=== PATIENT | male | born 1970 | race Caucasian/White ===

== ENCOUNTER 2017-04-27 09:04 | Emergency (ER) | payer SELFPAY ==
[~2017-04-27] VITALS: Ht 165.1 cm; Wt 80.0 kg
[2017-04-27 09:57] LABS: BASOPHILS % 0.4 % (0.0-2.0); EOSINOPHILS % 5.9 % (0.0-5.0); HEMATOCRIT. 36.7 % (42.0-52.0); LYMPHOCYTES % 19.5 % (20.0-50.0); MEAN CORPUSCULAR HEMOGLOBIN 33.1 pg (28.0-32.0); MEAN CORPUSCULAR VOLUME 93.7 fL (80.0-94.0); MEAN PLATELET VOLUME 6.4 fl (7.4-10.4); MONOCYTES % 9.5 % (2.0-8.0); NEUTROPHILS % 64.7 % (40.0-76.0); PLATELET 136 x1000/uL (130-400); RED BLOOD CELL COUNT 3.92 mill/uL (4.7-6.1); RED CELL DISTRIBUTION WIDTH 14.7 % (11.6-14.6)
[2017-04-27 10:03] LABS: CHLORIDE 102 mEq/L (98-107)
[2017-04-27 10:06] LABS: INR 1.2; PARTIAL THROMBOPLASTIN TIME 30.3 sec (23.4-31.0); PROTHROMBIN TIME 12.1 sec (9.4-11.6)
[2017-04-27 10:12] LABS: CARBON DIOXIDE 26 mEq/L (21-32)
[2017-04-27 10:38] LABS: CLARITY URINE CLEAR (CLEAR); COLOR URINE YELLOW (YELLOW); GLUCOSE URINE NEGATIVE (NEGATIVE); KETONES URINE NEGATIVE (NEGATIVE); LEUKOCYTE ESTERASE URINE NEGATIVE (NEGATIVE); NITRITE URINE NEGATIVE (NEGATIVE); OCCULT BLOOD URINE NEGATIVE (NEGATIVE); PROTEIN URINE NEGATIVE (NEGATIVE); SPECIFIC GRAVITY URINE 1.021 (1.005-1.030)
[2017-04-27] MEDS ORDERED: SODIUM BICARBONATE 4% (2.4MEQ) 5ML VIAL IV ONE (11:13)
[2017-04-27] MEDS ORDERED: LIDOCAINE HCL 1% 20ML VIAL (Pyxis) INJ ONE (11:13)
[2017-04-27] MEDS ORDERED: IBUPROFEN 400MG TABLET PO ONE (13:30)
[2017-04-27 13:46] VITALS: BP 122/78
== END 2017-04-27 14:38 | disposition home or self-care (01) ==
LOC: ER 09:22
DX: K70.31 Alcoholic cirrhosis of liver with ascites (principal)
CPT/HCPCS: 36415; 49083; 71010; 80053; 81003; 83690; 85025; 85610; 85730; 86850; 86900; 86901; 87070; 87205; 88108; 88312; 89050; 93005; 99285; J3490; Z7610

== ENCOUNTER 2017-06-07 08:33 | Emergency (ER) | payer SELFPAY ==
[~2017-06-07] VITALS: Ht 154.9 cm; Wt 77.0 kg
[2017-06-07 10:22] LABS: HEMATOCRIT. 34.8 % (42.0-52.0); HEMOGLOBIN. 11.7 g/dL (14.0-18.0); MEAN CORPUSCULAR HEMOGLOBIN 31.6 pg (28.0-32.0); MEAN PLATELET VOLUME 5.9 fl (7.4-10.4); PLATELET 140 x1000/uL (130-400); RED CELL DISTRIBUTION WIDTH 16.5 % (11.6-14.6)
[2017-06-07 10:31] LABS: INR 1.1; PARTIAL THROMBOPLASTIN TIME 29.9 sec (23.4-31.0); PROTHROMBIN TIME 11.7 sec (9.4-11.6)
[2017-06-07 10:38] LABS: CARBON DIOXIDE 27 mEq/L (21-32); CHLORIDE 99 mEq/L (98-107)
[2017-06-07 10:55] LABS: PLATELET ESTIMATE NORMAL
[2017-06-07] MEDS ORDERED: LIDOCAINE HCL 1% 20ML VIAL (Pyxis) INJ ONE (11:40)
[2017-06-07] MEDS ORDERED: SODIUM BICARBONATE 4% (2.4MEQ) 5ML VIAL IV ONE (11:40)
[2017-06-07 13:14] VITALS: BP 127/75
== END 2017-06-07 13:32 | disposition home or self-care (01) ==
LOC: ER 08:42
DX: K70.31 Alcoholic cirrhosis of liver with ascites (principal); Z98.890 Other specified postprocedural states
CPT/HCPCS: 36415; 49083; 71010; 80053; 83690; 85025; 85610; 85730; 86850; 86900; 86901; 99285; J3490; Z7610

== ENCOUNTER 2017-06-21 10:46 | Emergency (ER) | payer SELFPAY ==
[~2017-06-21] VITALS: Ht 152.4 cm; Wt 82.0 kg
[2017-06-21 12:06] LABS: HEMATOCRIT. 38.8 % (42.0-52.0); HEMOGLOBIN. 12.9 g/dL (14.0-18.0); MEAN CORPUSCULAR HEMOGLOBIN 30.9 pg (28.0-32.0); MEAN CORPUSCULAR VOLUME 92.8 fL (80.0-94.0); MEAN PLATELET VOLUME 5.9 fl (7.4-10.4); PLATELET 182 x1000/uL (130-400); RED BLOOD CELL COUNT 4.18 mill/uL (4.7-6.1); RED CELL DISTRIBUTION WIDTH 16.2 % (11.6-14.6)
[2017-06-21 12:16] LABS: INR 1.1; PARTIAL THROMBOPLASTIN TIME 28.7 sec (23.4-31.0); PROTHROMBIN TIME 11.4 sec (9.4-11.6)
[2017-06-21 13:00] LABS: PLATELET ESTIMATE NORMAL
[2017-06-21] MEDS ORDERED: SODIUM BICARBONATE 4% (2.4MEQ) 5ML VIAL IV ONE (13:59)
[2017-06-21 16:35] VITALS: BP 129/76
== END 2017-06-21 16:36 | disposition home or self-care (01) ==
LOC: ER 10:50
DX: K74.69 Other cirrhosis of liver (principal); R18.8 Other ascites
CPT/HCPCS: 36415; 49083; 85025; 85610; 85730; 99285; J3490; Z7610

== ENCOUNTER 2017-07-04 08:44 | Emergency (ER) | payer SELFPAY ==
[~2017-07-04] VITALS: Ht 165.1 cm; Wt 82.0 kg
[2017-07-04 09:58] LABS: BASOPHILS % 0.6 % (0.0-2.0); EOSINOPHILS % 4.5 % (0.0-5.0); HEMATOCRIT. 36.4 % (42.0-52.0); HEMOGLOBIN. 12.5 g/dL (14.0-18.0); LYMPHOCYTES % 16.4 % (20.0-50.0); MEAN CORPUSCULAR HEMOGLOBIN 31.4 pg (28.0-32.0); MEAN CORPUSCULAR VOLUME 91.4 fL (80.0-94.0); MEAN PLATELET VOLUME 6.3 fl (7.4-10.4); MONOCYTES % 13.7 % (2.0-8.0); NEUTROPHILS % 64.8 % (40.0-76.0); PLATELET 125 x1000/uL (130-400); RED BLOOD CELL COUNT 3.98 mill/uL (4.7-6.1); RED CELL DISTRIBUTION WIDTH 15.7 % (11.6-14.6)
[2017-07-04 10:05] LABS: CHLORIDE 104 mEq/L (98-107); INR 1.1; PROTHROMBIN TIME 11.1 sec (9.4-11.6)
[2017-07-04 10:13] LABS: CARBON DIOXIDE 24 mEq/L (21-32)
[2017-07-04] MEDS ORDERED: LIDOCAINE HCL 1% 20ML VIAL (Pyxis) INJ ONE (10:13)
[2017-07-04] MEDS ORDERED: SODIUM BICARBONATE 4% (2.4MEQ) 5ML VIAL IV ONE (10:13)
[2017-07-04 13:23] VITALS: BP 135/75
== END 2017-07-04 13:45 | disposition home or self-care (01) ==
LOC: ER 08:44
DX: R18.8 Other ascites (principal); K74.60 Unspecified cirrhosis of liver
CPT/HCPCS: 36415; 49083; 80053; 85025; 85610; 99285; J3490; Z7610

== ENCOUNTER 2017-07-17 09:02 | Emergency (ER) | payer SELFPAY ==
[~2017-07-17] VITALS: Ht 165.1 cm; Wt 93.3 kg
[2017-07-17] MEDS ORDERED: MORPHINE SULFATE 2 MG/ML CPJ (NOT FOR IM USE) IV ONE (10:30)
[2017-07-17 10:52] LABS: INR 1.1; PARTIAL THROMBOPLASTIN TIME 30.1 sec (23.4-31.0); PROTHROMBIN TIME 11.1 sec (9.4-11.6)
[2017-07-17 10:57] LABS: EOSINOPHILS % 4.2 % (0.0-5.0); HEMATOCRIT. 35.1 % (42.0-52.0); HEMOGLOBIN. 11.8 g/dL (14.0-18.0); MEAN CORPUSCULAR HEMOGLOBIN 30.3 pg (28.0-32.0); MEAN CORPUSCULAR VOLUME 90.5 fL (80.0-94.0); MEAN PLATELET VOLUME 6.2 fl (7.4-10.4); MONOCYTES % 12.7 % (2.0-8.0); NEUTROPHILS % 59.1 % (40.0-76.0); PLATELET 124 x1000/uL (130-400); RED BLOOD CELL COUNT 3.88 mill/uL (4.7-6.1); RED CELL DISTRIBUTION WIDTH 15.5 % (11.6-14.6)
[2017-07-17 11:11] LABS: CLARITY URINE CLEAR (CLEAR); COLOR URINE YELLOW (YELLOW); KETONES URINE NEGATIVE (NEGATIVE); LEUKOCYTE ESTERASE URINE NEGATIVE (NEGATIVE); NITRITE URINE NEGATIVE (NEGATIVE); OCCULT BLOOD URINE NEGATIVE (NEGATIVE); PH URINE 6.5 (4.5-8.0); PROTEIN URINE NEGATIVE (NEGATIVE); SPECIFIC GRAVITY URINE 1.012 (1.005-1.030)
[2017-07-17 11:19] LABS: CHLORIDE 104 mEq/L (98-107)
[2017-07-17] MEDS ORDERED: SODIUM BICARBONATE 4% (2.4MEQ) 5ML VIAL IV ONE (11:22)
[2017-07-17 15:21] VITALS: BP 127/76
== END 2017-07-17 16:26 | disposition home or self-care (01) ==
LOC: ER 09:02
DX: K70.31 Alcoholic cirrhosis of liver with ascites (principal); D64.9 Anemia, unspecified; D69.6 Thrombocytopenia, unspecified
CPT/HCPCS: 36415; 49083; 71045; 80053; 81003; 83690; 85025; 85610; 85730; 86850; 86900; 86901; 87070; 87205; 89050; 93005; 99285; J3490; Z7610

== ENCOUNTER 2017-08-02 08:11 | Emergency (ER) | payer SELFPAY ==
[~2017-08-02] VITALS: Ht 167.6 cm; Wt 82.0 kg
[2017-08-02 10:47] LABS: HEMATOCRIT. 36.1 % (42.0-52.0); MEAN CORPUSCULAR HEMOGLOBIN 30.7 pg (28.0-32.0); MEAN CORPUSCULAR VOLUME 92.2 fL (80.0-94.0); MEAN PLATELET VOLUME 6.2 fl (7.4-10.4); PLATELET 143 x1000/uL (130-400); RED BLOOD CELL COUNT 3.92 mill/uL (4.7-6.1); RED CELL DISTRIBUTION WIDTH 17.1 % (11.6-14.6)
[2017-08-02 10:58] LABS: CHLORIDE 103 mEq/L (98-107)
[2017-08-02 11:05] LABS: INR 1.1; PARTIAL THROMBOPLASTIN TIME 29.1 sec (23.4-31.0)
[2017-08-02] MEDS ORDERED: SODIUM BICARBONATE 4% (2.4MEQ) 5ML VIAL IV ONE (11:23)
[2017-08-02] MEDS ORDERED: LIDOCAINE HCL/PF 1% 10 MG/ML 5ML VIAL ONE (11:24)
[2017-08-02 11:53] LABS: PLATELET ESTIMATE NORMAL
[2017-08-02 14:31] VITALS: BP 110/78
== END 2017-08-02 14:34 | disposition home or self-care (01) ==
LOC: ER 08:17
DX: R18.8 Other ascites (principal)
CPT/HCPCS: 36415; 49083; 71045; 80053; 85025; 85610; 85730; 99285; J3490; Z7610

== ENCOUNTER 2017-11-19 10:35 | Inpatient (IN) | payer MEDICAID ==
[~2017-11-19] VITALS: Ht 167.6 cm; Wt 81.6 kg
[2017-11-19 11:39] LABS: BASOPHILS % 0.9 % (0.0-2.0); HEMOGLOBIN. 11.6 g/dL (14.0-18.0); LYMPHOCYTES % 17.3 % (20.0-50.0); MEAN CORPUSCULAR HEMOGLOBIN 31.8 pg (28.0-32.0); MONOCYTES % 12.3 % (2.0-8.0); NEUTROPHILS % 65.5 % (40.0-76.0); PLATELET 96 x1000/uL (130-400); RED BLOOD CELL COUNT 3.66 mill/uL (4.7-6.1); RED CELL DISTRIBUTION WIDTH 15.8 % (11.6-14.6)
[2017-11-19 11:45] LABS: CHLORIDE 102 mEq/L (98-107); INR 1.1
[2017-11-19] MEDS ORDERED: LIDOCAINE HCL/PF 1% 10 MG/ML 5ML VIAL ONE (12:35)
[2017-11-19] MEDS ORDERED: SODIUM BICARBONATE 4% (2.4MEQ) 5ML VIAL IV ONE (12:36)
[2017-11-19] MEDS ORDERED: CEFOXITIN SODIUM 2 G in DEXT 5% WATER 100 ML IV SCH (15:00)
[2017-11-19 16:45] VITALS: BP 137/91
[2017-11-19] MEDS ORDERED: GUAIFENESIN 200MG/10ML SUGAR FREE UDC PO PRN (16:45)
[2017-11-19] MEDS ORDERED: ACETAMINOPHEN 325MG TABLET PO PRN (16:45)
[2017-11-19] MEDS ORDERED: DOCUSATE SODIUM 100MG CAPSULE PO PRN (16:45)
[2017-11-19] MEDS ORDERED: CLONIDINE 0.1MG TABLET PO PRN (16:45)
[2017-11-19] MEDS ORDERED: ONDANSETRON HCL 4MG/2ML VIAL IV PRN (16:45)
[2017-11-19] MEDS ORDERED: DIPHENHYDRAMINE 50MG/ML VIAL IV PRN (16:45)
[2017-11-19] MEDS ORDERED: MAGNESIUM/ALUMINUM HYDROXIDE/SIMETHICONE 30ML UDC PO PRN (16:45)
[2017-11-19] MEDS ORDERED: LORAZEPAM 2MG/ML CPJ IV PRN (16:45)
[2017-11-19] MEDS ORDERED: NA PHOS,M-B/NA PHOS,DI-BA ENEMA 118ML PR PRN (16:45)
[2017-11-19] MEDS ORDERED: MORPHINE SULFATE 4 MG/ML CPJ (NOT FOR IM USE) IV PRN (16:45)
[2017-11-19] MEDS ORDERED: IPRATROPIUM/ALBUTEROL 0.5-3(2.5)MG/3ML NEB INH PRN (16:45)
[2017-11-19] MEDS ORDERED: HYDROCODONE/ACETAMINOPHEN 10/325MG TABLET PO PRN (16:45)
[2017-11-19] MEDS ORDERED: ENOXAPARIN 40MG/0.4ML SYR SUBCUT SCH (18:00)
[2017-11-19 20:00] VITALS: BP 130/88
[2017-11-19] MEDS ORDERED: LEVOFLOXACIN 500MG PREMIX 100 ML IV SCH (20:00)
[2017-11-19 20:39] LABS: CHLORIDE 100 mEq/L (98-107)
[2017-11-19] MEDS: METRONIDAZOLE 500 MG PREMIX 100 ML IV SCH (20:54)
[2017-11-20] VITALS: BP 128/84
[2017-11-20] MEDS: METRONIDAZOLE 500 MG PREMIX 100 ML IV SCH (03:04)
[2017-11-20 04:00] VITALS: BP 116/76
[2017-11-20 06:43] LABS: HEMATOCRIT. 36.6 % (42.0-52.0); HEMOGLOBIN. 12.4 g/dL (14.0-18.0); MEAN CORPUSCULAR HEMOGLOBIN 31.9 pg (28.0-32.0); MEAN CORPUSCULAR VOLUME 93.9 fL (80.0-94.0); MEAN PLATELET VOLUME 6.6 fl (7.4-10.4); PLATELET 97 x1000/uL (130-400); RED CELL DISTRIBUTION WIDTH 16.1 % (11.6-14.6)
[2017-11-20 07:58] LABS: CHLORIDE 100 mEq/L (98-107)
[2017-11-20 08:00] VITALS: BP 128/88
[2017-11-20 08:05] LABS: LDL CHOLESTEROL 41 mg/dL (5-100)
[2017-11-20 08:06] LABS: HDL CHOLESTEROL 71 mg/dL (40-59)
[2017-11-20] MEDS ORDERED: FUROSEMIDE 40MG/4ML VIAL IV SCH (09:00)
[2017-11-20 10:38] VITALS: BP 128/88
[2017-11-21 12:27] LABS: PLATELET ESTIMATE DECREASED
== END 2017-11-20 10:55 | disposition home or self-care (01) | DRG 280 ==
LOC: ER 12:21 → ENRESERV 15:23 → 6EST 16:58
PROVIDERS: ADMIT Internal Medicine; ATTEND Internal Medicine
PROC: 0W9G3ZZ Drainage of Peritoneal Cavity, Percutaneous Approach (ICD-10-PCS; principal; 2017-11-19)
DX: K70.31 Alcoholic cirrhosis of liver with ascites (principal); R65.10 Systemic inflammatory response syndrome (SIRS) of non-infectious origin without acute organ dysfunction; I10 Essential (primary) hypertension
CPT/HCPCS: 36415; 49083; 80048; 80053; 80061; 85025; 85610; 87040; 87070; 87205; 89050; 96365; 99285; J0694; J1650; J1940; J1956; J3490; J7040; J7060

== ENCOUNTER 2021-04-21 12:43 | Inpatient (IN) | payer MEDICAID ==
[~2021-04-21] VITALS: Ht 157.5 cm; Wt 79.5 kg
[2021-04-21] MEDS ORDERED: SODIUM CHLORIDE 0.9% 1000ML BAG (SEPSIS BOLUS) IV ONE (18:00)
[2021-04-21] MEDS ORDERED: CEFTRIAXONE 1 G PREMIX 50 ML IV ONE (18:00)
[2021-04-21 18:45] LABS: BASOPHILS % 0.6 % (0.0-2.0); EOSINOPHILS % 3.6 % (0.0-5.0); HEMOGLOBIN. 10.4 g/dL (14.0-18.0); LYMPHOCYTES % 15.9 % (20.0-50.0); MEAN CORPUSCULAR HEMOGLOBIN 35.6 pg (28.0-32.0); MEAN CORPUSCULAR VOLUME 102.4 fL (80.0-94.0); MEAN PLATELET VOLUME 6.7 fl (7.4-10.4); MONOCYTES % 12.9 % (2.0-8.0); PLATELET 176 x1000/uL (130-400); RED BLOOD CELL COUNT 2.92 mill/uL (4.7-6.1); RED CELL DISTRIBUTION WIDTH 14.1 % (11.6-14.6)
[2021-04-21 18:54] LABS: CHLORIDE 102 mEq/L (98-107)
[2021-04-21 19:14] LABS: INR 1.3; PROTHROMBIN TIME 13.3 sec (9.6-11.0)
[2021-04-21 23:01] VITALS: BP 131/90
[2021-04-21 23:24] VITALS: BP 131/90
[2021-04-21] MEDS ORDERED: DIPHENHYDRAMINE 50MG/ML VIAL IV PRN (23:30)
[2021-04-21] MEDS ORDERED: CLONIDINE 0.1MG TABLET PO PRN (23:30)
[2021-04-21] MEDS ORDERED: MAGNESIUM/ALUMINUM HYDROXIDE/SIMETHICONE 30ML UDC PO PRN (23:30)
[2021-04-21] MEDS ORDERED: ACETAMINOPHEN 325MG TABLET PO PRN ×2 (23:30)
[2021-04-21] MEDS ORDERED: POTASSIUM CHLORIDE 20MEQ TABLET SR PO NR (23:30)
[2021-04-21] MEDS ORDERED: ONDANSETRON HCL 4MG/2ML INJ IV PRN (23:30)
[2021-04-22] VITALS (7 sets, daily range): BP systolic 96–127; BP diastolic 56–82
[2021-04-22] MEDS: SODIUM CHLORIDE 0.9% INJ 3ML FLUSH IVF SCH ×3 (05:08→22:51)
[2021-04-22] MEDS: SPIRONOLACTONE 50MG TABLET PO SCH (09:47)
[2021-04-22] MEDS: FUROSEMIDE 40MG/4ML VIAL IVP SCH (09:47)
[2021-04-22] MEDS: POTASSIUM CHLORIDE 20MEQ TABLET SR PO SCH (09:48)
[2021-04-22] MEDS ORDERED: LIDOCAINE HCL 1% 10 MG/ML 10ML VIAL ONE (12:51)
[2021-04-22] MEDS ORDERED: SODIUM BICARBONATE 4% (2.4MEQ) 5ML VIAL IV ONE (12:52)
[2021-04-23] VITALS: BP 93/58
[2021-04-23 04:30] VITALS: BP 99/61
[2021-04-23] MEDS: SODIUM CHLORIDE 0.9% INJ 3ML FLUSH IVF SCH ×2 (04:46→14:24)
[2021-04-23 08:00] VITALS: BP 99/60
[2021-04-23] MEDS: SPIRONOLACTONE 50MG TABLET PO SCH (09:00)
[2021-04-23] MEDS: FUROSEMIDE 40MG/4ML VIAL IVP SCH (09:05)
[2021-04-23] MEDS: POTASSIUM CHLORIDE 20MEQ TABLET SR PO SCH (09:05)
[2021-04-23 12:00] VITALS: BP 103/63
[2021-04-23 15:09] VITALS: BP 103/63
== END 2021-04-23 15:35 | disposition home or self-care (01) ==
LOC: ER 12:43 → 7EST 19:51 → ENRESERV 22:07
PROVIDERS: ADMIT Internal Medicine; ATTEND Internal Medicine
PROC: 0W9G3ZZ Drainage of Peritoneal Cavity, Percutaneous Approach (ICD-10-PCS; principal; 2021-04-22)
DX: K74.60 Unspecified cirrhosis of liver (principal); E43 Unspecified severe protein-calorie malnutrition; R18.8 Other ascites; Z20.822 Contact with and (suspected) exposure to COVID-19; Z60.2 Problems related to living alone; E87.6 Hypokalemia; N62 Hypertrophy of breast; Z79.899 Other long term (current) drug therapy; Z68.32 Body mass index [BMI] 32.0-32.9, adult
CPT/HCPCS: 36415; 49083; 71045; 74176; 80053; 83605; 84145; 85025; 87426; 93005; 99291; J0696; J1940; J3490; J7030